=== PATIENT | female | born 1985 | race Caucasian/White ===

== ENCOUNTER 2017-01-28 18:37 | Emergency (ER) | payer BC, MEDICAID, SELFPAY ==
[~2017-01-28] VITALS: Ht 160 cm; Wt 104.3 kg
[~2017-01-28 18:37] MED LIST: ACET50TA PO; IBUP60TA PO; STUACAP PO
[2017-01-28] MEDS ORDERED: AMOX500C PO (20:38)
[2017-01-28 20:42] VITALS: BP 161/81
[2017-01-28] MEDS ORDERED: ACETAMINOPHEN 325 MG TAB PO ONE (20:45)
[2017-01-28] MEDS ORDERED: AMOXICILLIN 500 MG CAP PO ONE (20:45)
[2017-01-28] MEDS ORDERED: IBUPROFEN 800 MG TAB PO ONE (21:00)
== END 2017-01-28 21:09 | disposition home or self-care (01) ==
LOC: M ED 19:31
DX: J02.9 Acute pharyngitis, unspecified (principal)

== ENCOUNTER → 2023-02-11 | Outpatient (CLI) | payer OTHER ==
[~2023-02-11] MED LIST changes: -ACET50TA PO; +AMOX500C PO; +IBUP600T42 PO; -IBUP60TA PO; +MAPA500T2 PO
[2023-02-11 10:10] LABS: HEMOGLOBIN A1c 6.2 % (4.0-6.0)
== END ==
LOC: M LAB 08:27
PROVIDERS: ATTEND Surgery
DX: Z86.39 Personal history of other endocrine, nutritional and metabolic disease (principal)